=== PATIENT | female | born 1940 | race Two or more races ===

== ENCOUNTER 2020-11-23 16:42 | Emergency (ER) | payer MEDICAID, MEDICARE ==
[~2020-11-23] VITALS: Ht 165.1 cm; Wt 68.0 kg
[~2020-11-23 16:42] MED LIST: ASPI81CH43
[2020-11-23 19:15] LABS: Basophils # (auto) 0 10 ^3/uL (0-0.2); Basophils % (auto) 0.6 % (0.0-2.0); Eosinophils # (auto) 0 10 ^3/uL (0-0.8); Eosinophils % (auto) 0.3 % (0.0-7.0); Hematocrit 34.9 % (36.0-46.0); Hemoglobin 11.5 g/dL (12.2-16.2); Lymphocytes # (auto) 1.3 10 ^3/uL (0.4-5.4); Lymphocytes % (auto) 22.3 % (10.0-50.0); Mean Corpuscular Hemoglobin 32.5 pg (28.0-32.0); Mean Corpuscular Volume 98.6 fL (80.0-100.0); Monocytes # (auto) 0.2 10 ^3/uL (0-1.3); Monocytes % (auto) 3.6 % (0.0-12.0); Neutrophils # (auto) 4.2 10 ^3/uL (1.6-8.6); Neutrophils % (auto) 73.2 % (37.0-80.0); Nucleated Red Blood Cells % 0.1 %; Red Blood Cells 3.54 10^6/uL (4.0-5.20); Red Cell Distribution Width 13.8 % (11.8-14.3); White Blood Cell 5.7 10^3/uL (4.4-10.8)
[2020-11-23 19:31] LABS: Albumin 3.3 g/dL (3.4-5.0); Calcium 8.8 mg/dL (8.5-10.1); Potassium 3.8 mmol/L (3.5-5.1)
[2020-11-23 19:34] LABS: BUN/Creatinine Ratio 36.4; Bilirubin, Total 0.4 mg/dL (0.2-1.0); Total Protein 6.8 g/dL (6.4-8.2)
[2020-11-23] MEDS ORDERED: traMADol HCL 50 MG TAB PO ONE (19:45)
[2020-11-23 21:48] VITALS: BP 160/74
== END 2020-11-23 22:25 | disposition home or self-care (01) ==
LOC: ER 16:42
DX: S22.42XA Multiple fractures of ribs, left side, initial encounter for closed fracture (principal); M51.36 Other intervertebral disc degeneration, lumbar region; M41.9 Scoliosis, unspecified; M48.00 Spinal stenosis, site unspecified; N20.0 Calculus of kidney; E11.9 Type 2 diabetes mellitus without complications; I10 Essential (primary) hypertension; E78.00 Pure hypercholesterolemia, unspecified; W18.39XA Other fall on same level, initial encounter; Y93.89 Activity, other specified; Y92.89 Other specified places as the place of occurrence of the external cause; Y99.8 Other external cause status
CPT/HCPCS: 36415; 71101; 72131; 80053; 85025

== ENCOUNTER 2021-04-06 22:48 | Emergency (ER) | payer MEDICAID, MEDICARE, OTHER ==
[~2021-04-06] VITALS: Ht 154.9 cm; Wt 45.4 kg
[2021-04-06 23:38] LABS: Basophils # (auto) 0 10 ^3/uL (0-0.2); Basophils % (auto) 0.3 % (0.0-2.0); Eosinophils # (auto) 0 10 ^3/uL (0-0.8); Eosinophils % (auto) 0.2 % (0.0-7.0); Hematocrit 40.1 % (36.0-46.0); Hemoglobin 13.1 g/dL (12.2-16.2); Lymphocytes # (auto) 1.2 10 ^3/uL (0.4-5.4); Lymphocytes % (auto) 15.9 % (10.0-50.0); Mean Corpuscular Hemoglobin 31.7 pg (28.0-32.0); Mean Corpuscular Hgb Conc. 32.6 g/dL (32.0-36.0); Mean Corpuscular Volume 97.4 fL (80.0-100.0); Monocytes # (auto) 0.3 10 ^3/uL (0-1.3); Monocytes % (auto) 3.3 % (0.0-12.0); Neutrophils # (auto) 6.1 10 ^3/uL (1.6-8.6); Neutrophils % (auto) 80.3 % (37.0-80.0); Red Blood Cells 4.12 10^6/uL (4.0-5.20); Red Cell Distribution Width 14.9 % (11.8-14.3); White Blood Cell 7.6 10^3/uL (4.4-10.8)
[2021-04-06 23:57] LABS: Albumin 3.1 g/dL (3.4-5.0); BUN/Creatinine Ratio 29.6; Calcium 9.6 mg/dL (8.5-10.1); Potassium 3.8 mmol/L (3.5-5.1)
[2021-04-07] LABS: Bilirubin, Total 0.2 mg/dL (0.2-1.0); Total Protein 8.1 g/dL (6.4-8.2)
[2021-04-07] MEDS ORDERED: LISINOPRIL 10 MG TAB PO ONE (00:15)
[2021-04-07 06:00] VITALS: BP 119/43
== END 2021-04-07 09:00 | disposition home or self-care (01) ==
LOC: EDBD 22:48 → ER 22:50
DX: R41.82 Altered mental status, unspecified (principal); R56.9 Unspecified convulsions; E11.9 Type 2 diabetes mellitus without complications; E78.5 Hyperlipidemia, unspecified
CPT/HCPCS: 36415; 70450; 71045; 80053; 85025; 93005

== ENCOUNTER 2021-06-07 23:05 | Inpatient (IN) | payer MEDICAID, MEDICARE ==
[~2021-06-07] VITALS: Ht 160 cm; Wt 51.4 kg
[2021-06-08 01:29] LABS: Basophils # (auto) 0 10 ^3/uL (0-0.2); Basophils % (auto) 0.4 % (0.0-2.0); Eosinophils # (auto) 0.2 10 ^3/uL (0-0.8); Hematocrit 30.6 % (36.0-46.0); Hemoglobin 10.1 g/dL (12.2-16.2); Lymphocytes # (auto) 1.6 10 ^3/uL (0.4-5.4); Lymphocytes % (auto) 18.4 % (10.0-50.0); Mean Corpuscular Hemoglobin 31.5 pg (28.0-32.0); Mean Corpuscular Volume 95.3 fL (80.0-100.0); Monocytes # (auto) 0.4 10 ^3/uL (0-1.3); Monocytes % (auto) 4.6 % (0.0-12.0); Neutrophils # (auto) 6.5 10 ^3/uL (1.6-8.6); Neutrophils % (auto) 74.6 % (37.0-80.0); Red Cell Distribution Width 13.1 % (11.8-14.3); White Blood Cell 8.7 10^3/uL (4.4-10.8)
[2021-06-08 01:43] LABS: Albumin 1.9 g/dL (3.4-5.0); BUN/Creatinine Ratio 66.7; Calcium 8.8 mg/dL (8.5-10.1); Magnesium 2.6 mg/dL (1.6-2.6)
[2021-06-08 01:55] LABS: Bilirubin, Total 0.2 mg/dL (0.2-1.0); INR 1.12 (0.9-1.15); Total Protein 6.5 g/dL (6.4-8.2)
[2021-06-08] MEDS ORDERED: SODIUM CHLORIDE 0.9% 500 ML IV ONE (02:00)
[2021-06-08] MEDS ORDERED: ASPirin 325 MG TAB PO ONE (02:30)
[2021-06-08] MEDS ORDERED: IOHEXOL 300 MG/ML 100ML BOTTLE IJ ONE (02:52)
[2021-06-08] MEDS ORDERED: PIPERACILLIN-TAZOB 3.375GM 100 ML IV ONE (03:00)
[2021-06-08] MEDS ORDERED: VANCOMYCIN 1GM/250ML 250 ML IV ONE (03:00)
[2021-06-08] MEDS ORDERED: ACETAMINOPHEN 325 MG TAB PO PRN (07:30)
[2021-06-08] MEDS ORDERED: ONDANSETRON HCL 4 MG/2 ML VIAL IV PRN (07:30)
[2021-06-08] MEDS ORDERED: DOCUSATE SOD 100 MG CAP PO PRN (07:30)
[2021-06-08] MEDS ORDERED: HYDROcodone-ACET 5/325MG TAB PO PRN (07:30)
[2021-06-08] MEDS ORDERED: ALBUMIN 25% 100 ML IV ONE (07:30)
[2021-06-08] MEDS ORDERED: MORPHINE SULFATE INJECTION 2 MG/ML SYRG IV PRN (07:30)
[2021-06-08] MEDS ORDERED: NITROGLYCERIN 0.4 MG SL TAB SL PRN (07:30)
[2021-06-08] MEDS ORDERED: VANCOMYCIN PER PHARMACY 0 MG IV SCH (07:30)
[2021-06-08] MEDS: cefTRIAXone 1GM/50ML D5W 50 ML IV SCH (08:52)
[2021-06-08] MEDS: D5W/SOD CHL 0.45% 1,000 ML IV SCH (09:22)
[2021-06-08 10:35] LABS: Albumin 1.7 g/dL (3.4-5.0); Potassium 4.1 mmol/L (3.5-5.1)
[2021-06-08 11:18] LABS: BUN/Creatinine Ratio 70.8
[2021-06-08 11:19] LABS: Bilirubin, Total 0.1 mg/dL (0.2-1.0); Calcium 8.6 mg/dL (8.5-10.1)
[2021-06-08 11:51] LABS: Basophils # (auto) 0 10 ^3/uL (0-0.2); Basophils % (auto) 0.5 % (0.0-2.0); Eosinophils # (auto) 0.3 10 ^3/uL (0-0.8); Eosinophils % (auto) 3.3 % (0.0-7.0); Hematocrit 29.5 % (36.0-46.0); Hemoglobin 9.8 g/dL (12.2-16.2); Lymphocytes # (auto) 1.6 10 ^3/uL (0.4-5.4); Lymphocytes % (auto) 18.9 % (10.0-50.0); Mean Corpuscular Hgb Conc. 33.2 g/dL (32.0-36.0); Mean Corpuscular Volume 96.3 fL (80.0-100.0); Monocytes # (auto) 0.4 10 ^3/uL (0-1.3); Monocytes % (auto) 4.2 % (0.0-12.0); Neutrophils # (auto) 6.3 10 ^3/uL (1.6-8.6); Neutrophils % (auto) 73.1 % (37.0-80.0); Red Blood Cells 3.06 10^6/uL (4.0-5.20); Red Cell Distribution Width 12.9 % (11.8-14.3); White Blood Cell 8.6 10^3/uL (4.4-10.8)
[2021-06-08] MEDS: ZINC SULFATE 220mg CAP or TAB PO SCH (12:04)
[2021-06-08] MEDS: ASCORBIC ACID 500 MG TAB PO SCH ×2 (12:05→22:47)
[2021-06-08] MEDS: MULTIPLE VITAMIN TAB PO SCH (12:05)
[2021-06-08] MEDS: AZITHROMYCIN 500MG/ 250ML 250 ML IV SCH (12:06)
[2021-06-08] MEDS: FAMOTIDINE (10MG/ML) 2ML VL IV SCH ×2 (12:07→22:47)
[2021-06-08 17:00] VITALS: BP 116/55
[2021-06-08] MEDS: ATORVASTATIN 20 MG TAB PO SCH (22:47)
[2021-06-09 01:35] LABS: Urine Bacteria NONE SEEN /hpf (None Seen); Urine Blood 3+ /uL (Negative); Urine WBC 225 /hpf (0 - 5)
[2021-06-09] MEDS: D5W/SOD CHL 0.45% 1,000 ML IV SCH ×2 (04:00→23:30)
[2021-06-09] MEDS: VANCOMYCIN 1GM/250ML 250 ML IV SCH (04:02)
[2021-06-09 05:00] VITALS: BP 116/64
[2021-06-09] MEDS: cefTRIAXone 1GM/50ML D5W 50 ML IV SCH (08:49)
[2021-06-09] MEDS: MULTIPLE VITAMIN TAB PO SCH (08:50)
[2021-06-09] MEDS: ZINC SULFATE 220mg CAP or TAB PO SCH (08:50)
[2021-06-09] MEDS: AZITHROMYCIN 500MG/ 250ML 250 ML IV SCH (08:50)
[2021-06-09] MEDS: ASCORBIC ACID 500 MG TAB PO SCH ×2 (08:50→22:17)
[2021-06-09] MEDS: ASPirin 81 mg TAB PO SCH (08:50)
[2021-06-09] MEDS: FAMOTIDINE (10MG/ML) 2ML VL IV SCH ×2 (08:50→22:17)
[2021-06-09 09:00] VITALS: BP 132/66
[2021-06-09 13:00] VITALS: BP 102/44
[2021-06-09 13:33] LABS: Basophils # (auto) 0 10 ^3/uL (0-0.2); Basophils % (auto) 0.3 % (0.0-2.0); Eosinophils # (auto) 0.2 10 ^3/uL (0-0.8); Eosinophils % (auto) 2.1 % (0.0-7.0); Hematocrit 28.5 % (36.0-46.0); Hemoglobin 9.4 g/dL (12.2-16.2); Lymphocytes # (auto) 1.2 10 ^3/uL (0.4-5.4); Lymphocytes % (auto) 12.4 % (10.0-50.0); Mean Corpuscular Hemoglobin 31.3 pg (28.0-32.0); Mean Corpuscular Hgb Conc. 33.1 g/dL (32.0-36.0); Mean Corpuscular Volume 94.4 fL (80.0-100.0); Monocytes # (auto) 0.4 10 ^3/uL (0-1.3); Monocytes % (auto) 4.1 % (0.0-12.0); Neutrophils # (auto) 7.7 10 ^3/uL (1.6-8.6); Neutrophils % (auto) 81.1 % (37.0-80.0); Red Blood Cells 3.02 10^6/uL (4.0-5.20); Red Cell Distribution Width 12.7 % (11.8-14.3); White Blood Cell 9.4 10^3/uL (4.4-10.8)
[2021-06-09 13:35] LABS: Albumin 2.2 g/dL (3.4-5.0); Calcium 8.4 mg/dL (8.5-10.1); Potassium 3.8 mmol/L (3.5-5.1)
[2021-06-09 13:40] LABS: BUN/Creatinine Ratio 53.2; Bilirubin, Total 0.2 mg/dL (0.2-1.0)
[2021-06-09 16:46] VITALS: BP 125/59
[2021-06-09 22:00] VITALS: BP 158/81
[2021-06-09] MEDS: ATORVASTATIN 20 MG TAB PO SCH (22:17)
[2021-06-10] MEDS: VANCOMYCIN 1GM/250ML 250 ML IV SCH (03:40)
[2021-06-10 05:00] VITALS: BP 151/68
[2021-06-10 08:00] VITALS: BP 148/73
[2021-06-10 09:00] VITALS: BP 148/73
[2021-06-10] MEDS: FAMOTIDINE (10MG/ML) 2ML VL IV SCH (10:08)
[2021-06-10] MEDS: MULTIPLE VITAMIN TAB PO SCH (10:08)
[2021-06-10] MEDS: ZINC SULFATE 220mg CAP or TAB PO SCH (10:08)
[2021-06-10] MEDS: ASPirin 81 mg TAB PO SCH (10:08)
[2021-06-10] MEDS: cefTRIAXone 1GM/50ML D5W 50 ML IV SCH (10:08)
[2021-06-10] MEDS: ASCORBIC ACID 500 MG TAB PO SCH (10:09)
[2021-06-10] MEDS: AZITHROMYCIN 500MG/ 250ML 250 ML IV SCH (10:10)
[2021-06-10 13:00] VITALS: BP 141/57
[2021-06-10 17:00] VITALS: BP 141/59
[2021-06-10 22:00] VITALS: BP 147/70
[2021-06-11] MEDS: VANCOMYCIN 1GM/250ML 250 ML IV SCH (03:38)
[2021-06-11 05:25] VITALS: BP 161/80
[2021-06-11] MEDS ORDERED: MORPHINE SULFATE INJECTION 2 MG/ML SYRG IV ONE (06:30)
[2021-06-11] MEDS ORDERED: cloNIDine HCL 0.1 MG TAB PO ONE (06:30)
[2021-06-11 09:00] VITALS: BP 141/75
[2021-06-11] MEDS: ZINC SULFATE 220mg CAP or TAB PO SCH (10:05)
[2021-06-11] MEDS: MULTIPLE VITAMIN TAB PO SCH (10:05)
[2021-06-11] MEDS: ASPirin 81 mg TAB PO SCH (10:05)
[2021-06-11] MEDS: cefTRIAXone 1GM/50ML D5W 50 ML IV SCH (10:06)
[2021-06-11 12:11] VITALS: BP 141/64
[2021-06-11 12:54] VITALS: BP 134/61
== END 2021-06-11 13:30 | disposition hospice, home (50) | DRG 720 ==
LOC: EDBD 23:05 → ER 23:05 → TELE 06-08 07:26 → TELE-CENTR 06-08 10:16 → CENTRAL 06-11 00:36
PROVIDERS: ADMIT Nurse Practitioner Family; ATTEND Internal Medicine
DX: A41.9 Sepsis, unspecified organism (principal); J69.0 Pneumonitis due to inhalation of food and vomit; I21.A1 Myocardial infarction type 2; L89.154 Pressure ulcer of sacral region, stage 4; E43 Unspecified severe protein-calorie malnutrition; I31.3 Pericardial effusion (noninflammatory); G30.9 Alzheimer's disease, unspecified; D64.9 Anemia, unspecified; E11.9 Type 2 diabetes mellitus without complications; F02.80 Dementia in other diseases classified elsewhere, unspecified severity, without behavioral disturbance, psychotic disturbance, mood disturbance, and anxiety; Z66 Do not resuscitate; Z99.3 Dependence on wheelchair; Z74.01 Bed confinement status; B96.4 Proteus (mirabilis) (morganii) as the cause of diseases classified elsewhere; N39.0 Urinary tract infection, site not specified; E78.5 Hyperlipidemia, unspecified; I71.9 Aortic aneurysm of unspecified site, without rupture; I10 Essential (primary) hypertension; Z20.822 Contact with and (suspected) exposure to COVID-19; G40.909 Epilepsy, unspecified, not intractable, without status epilepticus; M81.0 Age-related osteoporosis without current pathological fracture; J44.9 Chronic obstructive pulmonary disease, unspecified; Z68.20 Body mass index [BMI] 20.0-20.9, adult
CPT/HCPCS: 36415; 71045; 74177; 80053; 80061; 80202; 81001; 83036; 83605; 83735; 84443; 84484; 85025; 85610; 87040; 87077; 87086; 87186; 87205; 87426; 93005; 93306; 96361; 96365; 96366; 96367; 96368; G0378; J0696; J2543; J3490; P9047